=== PATIENT | female | born 1970 | race Caucasian/White ===

== ENCOUNTER 2020-10-02 09:20 | Day surgery (SDC) | payer OTHER ==
[~2020-10-02] VITALS: Ht 167.6 cm; Wt 111.4 kg
[~2020-10-02 09:20] MED LIST: ATORVASTATIN CA10 MG PO; FLOMAX0.4 MG PO; PRILOSEC OTC20 MG PO; SINGULAIR10 MG PO; VITAMIN B COMP1 EACH PO; VITAMIN D31250 MCG PO; WELLBUTRIN XL150 MG PO
--- NOTE | 2020-10-02 12:02 | NUR ---
10/02/20 1202 Agustina Perez 1156 PATIENT ARRIVES TO PACU SLEEPING. RESP EVEN AND UNLABORED, MASK AT 6 LITERS 1201 PATIENT SLEEPING, AWAKENS WITH VERBAL STIMULI, THEN RIGHT BACK TO SLEEP. RESP EVEN AND UNLABORED, LIGHT SNORE AT TIMES. MASK AT 6 LITERS. SATS 100%.
--- NOTE | 2020-10-02 12:50 | NUR ---
1240 PATIENT TO ROOM VIA STRETCHER. SITTING UP EATING CRACKERS, PUDDING, AND DRINKING JUICE. REPORTS MODERATE PAIN, WILL MEDICATE WITH PAIN PILL. PRESCRIPTION GIVEN TO SPOUSE TO TAKE TO PHARMACY. CALL LIGHT WITHIN REACH.
--- NOTE | 2020-10-02 13:30 | NUR ---
PT AMBULATED TO THE RESTROOM AND BACK TO BED. PT TOLERATED WELL.
--- NOTE | 2020-10-06 07:24 | OR ---
[facility] [address] [place], [place] [address] Signed DATE OF OPERATION: 10/02/2020 SURGEON: Fely Monroe MD PREOPERATIVE DIAGNOSES: 1. Left proximal shoulder/trapezius subcutaneous mass (8 cm). 2. 1 cm subcutaneous mass, right forehead. POSTOPERATIVE DIAGNOSES: 1. Left proximal shoulder/trapezius lipoma (6 cm). 2. Right forehead subcutaneous mass (6 mm, lipoma). PROCEDURE: Excision of subcutaneous masses x2. ESTIMATED BLOOD LOSS: None. INDICATIONS: Flores is a 50-year-old female, asked to see me for two issues. Mainly she has a very large lump around 8 cm or so over the left trapezius where it comes down to the shoulder. It is underneath her bra strap and it has been causing her quite a bit of difficulty and pain. It has been there at least 6 years. She said it has never been infected. It seems to be increasing in size. She had been to her primary care provider with respect to the above. In addition, over the right eyebrow, she has a 1 cm subcutaneous mass. She said that it has been there about a year. It also is increasing in size. Neither one have been infected or drained. She wanted to have them both excised for definitive diagnosis and treatment. In the office, I explained to her the incisions required to remove the two lesions. She understands expected intraop and postop course. There is risk to surgery including, but not limited to bleeding, infection, scarring, change in contour of the skin as well as recurrent lesions in the same or other locations. She had expressed understanding and wished to proceed. DESCRIPTION OF PROCEDURE: I met with Flores and her in the preop area. We identified both lesions and marked them appropriately. After this, she was taken in the operating room and placed in supine position under general LMA anesthesia. She was given preoperative antibiotics along with subcutaneous heparin. SCDs were utilized. We then prepped and draped the left shoulder in usual sterile fashion. A radial incision was made over the lesion comes down to the shoulder. We went down and around the lipoma with the help Electronically Signed By: FELY MONROE MD 10/06/20 0724 PATIENT NAME: FLORES CRUZ OPERATIVE REPORT DATE OF : 74 REPORT #: [id number] PHYSICIAN: FELY MONROE MD PCP: YVON LELIS PA-C REPORT IS CONFIDENTIAL AND NOT TO BE RELEASED WITHOUT AUTHORIZATION [facility] [address], [place] [address] Signed of the cautery. It turned out to be about 6 cm in diameter. We then injected local anesthetic into the wound. The wound was irrigated and suctioned out until clear. We closed the dermis with interrupted 3-0 subcuticular Monocryl sutures. The skin edges were reapproximated with a running 5-0 fast absorbing plain gut suture. Dry gauze and tape were then applied. The entire field was taken down and Flores's head was repositioned. We then prepped her forehead in the usual sterile fashion. We used a transverse incision over the lesion and went down around the lesion very carefully with the needle-tip cautery. We found that this was in fact a lipoma rather than an inclusion cyst. It was probably 5 or 6 mm in diameter. We then injected local anesthetic into the wound. The wound was irrigated and suctioned out until clear. We closed the dermis with interrupted 5-0 subcuticular Monocryl sutures. The skin edges were reapproximated with a running 5-0 fast absorbing plain gut suture. Dry gauze and tape were then applied. After this, Flores was awakened from her anesthesia, extubated in the OR, and taken to the recovery room in stable condition. Fely Monroe MD ALB/MODL /[id number] cc: YVROSE Elizabeth MD Copies: YVON ELLIS PA-C, ANDREW L MD ~ Electronically Signed By: FELY MONROE MD 10/06/20 0724 PATIENT NAME: FLORES CRUZ OPERATIVE REPORT DATE OF : 74 REPORT #: [id number] PHYSICIAN: FELY MONROE MD PCP: YVON ELLIS PA-C REPORT IS CONFIDENTIAL AND NOT TO BE RELEASED WITHOUT AUTHORIZATION
--- NOTE | 2020-10-06 12:34 | PATH ---
[facility] [address] [place], [place] [address] Signed SPECIMEN(S): A SUBCUTANEOUS MASS, LEFT SHOULDER SPECIMEN(S): B SUBCUTANEOUS MASS, RIGHT FOREHEAD SPECIMEN SOURCE: A. SUBCUTANEOUS MASS, LEFT SHOULDER B. SUBCUTANEOUS MASS, RIGHT FOREHEAD CLINICAL HISTORY: Lipoma. Epidermal cyst of face. Excision, subcutaneous mass, left shoulder, right forehead. FINAL PATHOLOGIC DIAGNOSIS: A. Subcutaneous mass, left shoulder, excision: - Lipoma. B. Subcutaneous mass, right forehead, excision: - Lipoma. NAL:cml:C2NR MICROSCOPIC EXAMINATION: Histologic sections of all submitted blocks are examined by light microscopy. These findings, together with the gross examination, support the pathologic diagnosis. GROSS DESCRIPTION: Two specimens are received in two containers, labeled "SH." A. The specimen, labeled "SH, A," and designated on the requisition "subcutaneous mass, left shoulder, lipoma," is received in formalin and consists of a 48 g, discoid, yellow, lobulated, 6.5 x 5.7 x 2.5 cm, rubbery tissue mass. The external surface is inked blue and the specimen is cross-sectioned to reveal yellow homogenous, grossly unremarkable tissue. [employer] sections are submitted in two cassettes (A1-A2). B. The specimen, labeled "SH, B," and designated on the requisition "subcutaneous mass right forehead, epidermal cyst of face," is received in formalin and consists of a ragged, yellow, rubbery 0.5 g, 2.2 x 1.2 x 0.4 cm tissue piece. The external surface is inked blue and the specimen is submitted in toto in one cassette (B1). AI (under the direct supervision of a pathologist) The Gross Description was prepared using a voice recognition system. The report was reviewed for accuracy; however, sound-alike word errors, addition and/or PATIENT NAME: ENMA CRUZ PATHOLOGY DATE OF : 74 REPORT #: [id number] PHYSICIAN: REJI PATHOLOGY PCP: YVON ELLIS PA-C REPORT IS CONFIDENTIAL AND NOT TO BE RELEASED WITHOUT AUTHORIZATION [facility] [address] [place], [place] [address] Signed deletions may occur. If there is any question about this report, please contact Client Services. PERFORMING LABORATORY: The technical component was performed by [facility] [address] [address] (Endoscopy Technican: Sally Downing MD; CLIA# [id number]). Professional interpretation was performed by [facility], [address] [address] (CLIA# [id number]). Diagnostician: Debra Jimenez MD Pathologist Electronically Signed 10/06/2020 Copies: ~ PATIENT NAME: ENMA CRUZ PATHOLOGY DATE OF : 74 REPORT #: [id number] PHYSICIAN: REJI BRAND PCP: YVON ELLIS PA-C REPORT IS CONFIDENTIAL AND NOT TO BE RELEASED WITHOUT AUTHORIZATION
== END 2020-10-02 13:59 | disposition home or self-care (01) ==
LOC: DS 09:20
PROVIDERS: ATTEND Colon & Rectal Surgery
PROC: 0JB70ZZ Excision of Back Subcutaneous Tissue and Fascia, Open Approach (ICD-10-PCS; 2020-10-02)
PROC: 0JB10ZZ Excision of Face Subcutaneous Tissue and Fascia, Open Approach (ICD-10-PCS; principal; 2020-10-02 10:30)
DX: D17.1 Benign lipomatous neoplasm of skin and subcutaneous tissue of trunk (principal); D17.0 Benign lipomatous neoplasm of skin and subcutaneous tissue of head, face and neck; G47.30 Sleep apnea, unspecified; E78.5 Hyperlipidemia, unspecified; E66.9 Obesity, unspecified; Z68.41 Body mass index [BMI] 40.0-44.9, adult
CPT/HCPCS: 00300; J0690; J1100; J1644; J2001; J2405; J2704; J3010; J7121